=== PATIENT | female | born 1930 | race Caucasian/White ===

== ENCOUNTER 2016-06-02 16:42 | Emergency (ER) | payer OTHER ==
[~2016-06-02] VITALS: Ht 160 cm; Wt 70.3 kg
[2016-06-02 16:42] VITALS: BP 156/77; PULSE 68; RESP 16; TEMP 97; O2SAT 98
--- NOTE | 2016-06-02 16:42 | NUR ---
Patient to ER bed 4 to gown for evaluation. Side rails up. Report given to LAURA TAVERAS.
--- NOTE | 2016-06-02 16:51 | NUR ---
Patient brought to ER from nursing facility for medical eval. Per facility report to EMT patient is confused, baseline is AAOx4. Patient is alert to person only. Deneis pain, afebrile. No signs of acute distress.
--- NOTE | 2016-06-02 17:05 | NUR ---
# 20 gauge angiocath placed to LEFT AC. Use of asceptic technique. Opsite placed over site. Blood return noted. Blood for lab drawn from site including blood cultures and lactic acid. Flushed with 10 cc of normal saline. No evidence of infiltration noted. Patient tolerated well.
--- NOTE | 2016-06-02 17:08 | NUR ---
ER MD Zamora at bedside evaluating the patient
[2016-06-02] MEDS ORDERED: PIPERACILLIN/TAZO 3.38 GM in NS 50 ML IV ONE (17:30)
--- NOTE | 2016-06-02 17:30 | NUR ---
Radiology at bedside with portable for chest Xray
[2016-06-02 17:33] LABS: BASOPHILS # (AUTO) 0.1 K/uL (0.0-0.2); BASOPHILS % (AUTO) 0.7 % (0.0-2.0); EOSINOPHILS # (AUTO) 0.3 K/uL (0.0-0.4); EOSINOPHILS % (AUTO) 4.3 % (0.0-4.0); HEMATOCRIT 41.5 % (36-48); HEMOGLOBIN 13.7 g/dL (12.0-16.0); LYMPHOCYTES # (AUTO) 1.5 K/uL (1.0-5.5); LYMPHOCYTES % (AUTO) 19.9 % (20.5-51.5); MEAN CORPUSCULAR HEMOGLOBIN 29 pg (27-31); MEAN CORPUSCULAR HGB CONC 33 % (32-36); MEAN CORPUSCULAR VOLUME 87 fL (79.0-98.0); MONOCYTES # (AUTO) 0.6 K/uL (0.0-1.0); MONOCYTES % (AUTO) 7.9 % (1.7-9.3); NEUTROPHILS # (AUTO) 4.9 K/uL (1.8-7.7); NEUTROPHILS % (AUTO) 67.2 % (40.0-70.0); PLATELET COUNT (AUTO) 255 K/uL (130-430); RED BLOOD CELL COUNT(AUTO) 4.78 MIL/uL (4.2-6.2); RED CELL DISTRIBUTION WIDTH 13.9 % (9.0-15.0); WHITE BLOOD COUNT (AUTO) 7.4 K/uL (4.8-10.8)
--- NOTE | 2016-06-02 17:39 | NUR ---
# 14 FR In and Out catheter with use of sterile technique. Immediate return of 300 ml yellow urine noted. Urine sample collected and sent to lab. Pt tolerated procedure well.
[2016-06-02 17:44] LABS: ANION GAP 7 (5-15); CALCIUM 9.2 mg/dL (8.4-11.0); CHLORIDE 105 mmol/L (98-107); CREATININE 1.06 mg/dL (0.55-1.30); GLUCOSE 111 mg/dL (70-99); POTASSIUM 4.1 mmol/L (3.5-5.1); SODIUM SERUM 139 mmol/L (136-145); UREA NITROGEN, BLOOD 24 mg/dL (8-21)
[2016-06-02 17:49] LABS: ALANINE AMINOTRANSFERASE 22 U/L (12-78); ALBUMIN 3.6 g/dL (3.4-4.8); ASPARTATE AMINOTRANSFERASE 19 U/L (10-37); LIPASE 113 U/L (73-393); TOTAL BILIRUBIN 0.4 mg/dL (0.0-1.0); TOTAL PROTEIN, SERUM 7.5 g/dL (6.4-8.3)
[2016-06-02 18:00] LABS: PROTHROMBIN TIME 10.4 SECS (9.5-12.5)
[2016-06-02] MEDS ORDERED: cloNIDine HCL 0.1 MG TABLET PO ONE (18:15)
[2016-06-02 18:20] LABS: BILIRUBIN,URINE NEGATIVE (NEGATIVE); BLOOD, URINE NEGATIVE (NEGATIVE); CLARITY/URINE CLEAR (CLEAR); COLOR,URINE YELLOW (YELLOW); GLUCOSE,URINE NEGATIVE (NEGATIVE); KETONES,URINE TRACE (NEGATIVE); LEUKOCYTE ESTERASE ,URINE NEGATIVE (NEGATIVE); NITRITE, URINE NEGATIVE (NEGATIVE); PROTEIN URINE NEGATIVE (NEGATIVE); UROBILINOGEN,URINE 0.2 (0.2-1.0)
[2016-06-02] MEDS ORDERED: PIPERACILLIN/TAZOBACTAM 3.375 GM/VIAL (ZOSYN) IV ONE (18:21)
[2016-06-02] MEDS ORDERED: ASPI-1063 PO (18:51)
--- NOTE | 2016-06-02 18:57 | NUR ---
Daughter Gricelda, called to inquire about the patient. Daughter made aware that patient is to be discharged. She will make arrangements for transport back to the facility.
--- NOTE | 2016-06-02 19:41 | NUR ---
Daughter Gricelda here to machine pecan picker the patient.
--- NOTE | 2016-06-02 19:44 | NUR ---
ER MD Zamora aware of BP 164/60. States OK to discharge.
[2016-06-02 19:53] VITALS: BP 164/60; PULSE 70; RESP 16; TEMP 97.8; O2SAT 96
--- NOTE | 2016-06-02 19:53 | NUR ---
Patient given written and verbal discharge instructions and verbalizes understanding. ER MD Zamora discussed with patient the results and treatment provided. Given copies of tests performed in ER. Patient in stable condition. ID arm band removed. IV catheter removed intact and dressing applied, no active bleeding. Patient educated on pain management and to follow up with PMD. Pain Scale 0/10. Opportunity for questions provided and answered.
== END 2016-06-02 19:53 | disposition home or self-care (01) ==
LOC: SED 16:42
DX: Z00.01 Encounter for general adult medical examination with abnormal findings (principal); R41.82 Altered mental status, unspecified; C18.9 Malignant neoplasm of colon, unspecified; E11.9 Type 2 diabetes mellitus without complications; I10 Essential (primary) hypertension; E05.90 Thyrotoxicosis, unspecified without thyrotoxic crisis or storm; Z85.038 Personal history of other malignant neoplasm of large intestine; Z79.82 Long term (current) use of aspirin
CPT/HCPCS: 36415; 71010; 80053; 81003; 83605; 83690; 85025; 85610; 87040; 93005; 96365; 99285; J2543; J7030